=== PATIENT | female | born 1995 | race Caucasian/White ===

== ENCOUNTER → 2021-08-16 00:01 | Outpatient (BNVA) | payer SELFPAY | PROVIDERS: Visit Provider Dermatology | DX: Z01.89 Encounter for other specified special examinations (principal) ==

== ENCOUNTER → 2021-11-07 12:11 | Outpatient (BNVA) | payer OTHER, SELFPAY | PROVIDERS: Visit Provider Family Medicine | DX: Z20.822 Contact with and (suspected) exposure to COVID-19 (principal) | CPT/HCPCS: 87635 ==

== ENCOUNTER → 2023-04-13 08:40 | Outpatient (BNVA) | payer OTHER, SELFPAY | PROVIDERS: PCP Family Medicine; Visit Provider Family Medicine | DX: N91.2 Amenorrhea, unspecified (principal) | CPT/HCPCS: 84702 ==

== ENCOUNTER → 2023-04-17 15:19 | Outpatient (BNVA) | payer OTHER, SELFPAY | PROVIDERS: PCP Family Medicine; Visit Provider Family Medicine | DX: M25.551 Pain in right hip (principal) | CPT/HCPCS: 73502 ==

== ENCOUNTER → 2023-05-15 11:53 | Outpatient (BNVA) | payer OTHER, SELFPAY | PROVIDERS: PCP Family Medicine; Visit Provider Family Medicine | DX: Z13.29 Encounter for screening for other suspected endocrine disorder (principal); Z01.89 Encounter for other specified special examinations | CPT/HCPCS: 84439; 84481 ==

== ENCOUNTER → 2023-07-19 08:08 | Outpatient (BNVA) | payer OTHER, SELFPAY | PROVIDERS: PCP Family Medicine; Visit Provider Nurse Practitioner Women's Health | DX: Z34.90 Encounter for supervision of normal pregnancy, unspecified, unspecified trimester (principal); N92.6 Irregular menstruation, unspecified | CPT/HCPCS: 81025 ==

== ENCOUNTER → 2023-08-01 13:19 | Outpatient (BNVA) | payer OTHER, SELFPAY | PROVIDERS: PCP Family Medicine; Visit Provider Nurse Practitioner Women's Health | DX: Z34.90 Encounter for supervision of normal pregnancy, unspecified, unspecified trimester (principal) | CPT/HCPCS: 76817; 81000; 84702; 85025; 86850; 86900 ==

== ENCOUNTER 2023-08-08 13:15 | Outpatient (CLI) | payer OTHER, SELFPAY | END 2023-08-08 13:16 | disposition home or self-care (01) | LOC: LAB 13:17 | PROVIDERS: PCP Family Medicine; Visit Provider Nurse Practitioner Women's Health | DX: O20.0 Threatened abortion (principal); Z3A.00 Weeks of gestation of pregnancy not specified | CPT/HCPCS: 36415; 76817; 84702 ==

== ENCOUNTER → 2023-08-13 12:10 | Outpatient (BNVA) | payer OTHER, SELFPAY | PROVIDERS: PCP Family Medicine; Visit Provider Nurse Practitioner Women's Health | DX: Z34.90 Encounter for supervision of normal pregnancy, unspecified, unspecified trimester (principal) | CPT/HCPCS: 76817 ==

== ENCOUNTER 2023-08-13 12:44 | Outpatient (CLI) | payer OTHER, SELFPAY | END 2023-08-13 12:45 | disposition home or self-care (01) | LOC: LAB 12:47 | PROVIDERS: PCP Family Medicine; Visit Provider Obstetrics & Gynecology | DX: O20.0 Threatened abortion (principal); Z3A.00 Weeks of gestation of pregnancy not specified | CPT/HCPCS: 36415; 84702 ==

== ENCOUNTER → 2023-11-01 07:42 | Outpatient (BNVA) | payer OTHER, SELFPAY | PROVIDERS: PCP Family Medicine; Visit Provider Nurse Practitioner Women's Health | DX: N92.6 Irregular menstruation, unspecified (principal); E03.9 Hypothyroidism, unspecified | CPT/HCPCS: 81025; 84439; 84443; 84481; 84702 ==

== ENCOUNTER → 2023-11-06 09:17 | Outpatient (BNVA) | payer OTHER, SELFPAY | PROVIDERS: PCP Family Medicine; Visit Provider Nurse Practitioner Women's Health | DX: Z36.87 Encounter for antenatal screening for uncertain dates (principal) | CPT/HCPCS: 76801 ==

== ENCOUNTER → 2023-11-14 10:29 | Outpatient (BNVA) | payer OTHER, SELFPAY | PROVIDERS: PCP Family Medicine; Visit Provider Internal Medicine | DX: E03.9 Hypothyroidism, unspecified (principal) | CPT/HCPCS: 84439 ==

== ENCOUNTER → 2023-11-27 14:51 | Outpatient (BNVA) | payer OTHER, SELFPAY | PROVIDERS: PCP Family Medicine; Visit Provider Nurse Practitioner Women's Health | DX: Z34.90 Encounter for supervision of normal pregnancy, unspecified, unspecified trimester (principal) | CPT/HCPCS: 80307; 84315; 85025; 86592; 86762; 86803; 86850; 86900; 87086; 87340; 87806 ==

== ENCOUNTER → 2024-01-01 13:17 | Outpatient (BNVA) | payer OTHER, SELFPAY | PROVIDERS: PCP Family Medicine; Visit Provider Internal Medicine | DX: E03.9 Hypothyroidism, unspecified (principal) | CPT/HCPCS: 84439; 84443 ==

== ENCOUNTER → 2024-01-04 07:58 | Outpatient (BNVA) | payer OTHER, SELFPAY | PROVIDERS: PCP Family Medicine; Visit Provider Nurse Practitioner Women's Health | DX: Z34.80 Encounter for supervision of other normal pregnancy, unspecified trimester (principal) | CPT/HCPCS: 82105; 84315; 87086 ==

== ENCOUNTER → 2024-01-31 09:25 | Outpatient (BNVA) | payer OTHER, SELFPAY | PROVIDERS: PCP Family Medicine; Visit Provider Obstetrics & Gynecology | DX: Z36.2 Encounter for other antenatal screening follow-up (principal); Z3A.20 20 weeks gestation of pregnancy | CPT/HCPCS: 76805 ==

== ENCOUNTER → 2024-02-27 09:22 | Outpatient (BNVA) | payer OTHER, SELFPAY | PROVIDERS: PCP Family Medicine; Visit Provider Obstetrics & Gynecology | DX: G93.0 Cerebral cysts (principal); Z3A.24 24 weeks gestation of pregnancy | CPT/HCPCS: 76816 ==

== ENCOUNTER → 2024-03-04 08:25 | Outpatient (BNVA) | payer OTHER, SELFPAY | PROVIDERS: PCP Family Medicine; Visit Provider Nurse Practitioner Women's Health | DX: Z34.80 Encounter for supervision of other normal pregnancy, unspecified trimester (principal); Z34.90 Encounter for supervision of normal pregnancy, unspecified, unspecified trimester | CPT/HCPCS: 82950; 84315 ==

== ENCOUNTER → 2024-03-31 08:35 | Outpatient (BNVA) | payer OTHER, SELFPAY | PROVIDERS: PCP Family Medicine; Visit Provider Obstetrics & Gynecology | DX: Z34.80 Encounter for supervision of other normal pregnancy, unspecified trimester (principal); Z36.4 Encounter for antenatal screening for fetal growth retardation; Z3A.30 30 weeks gestation of pregnancy | CPT/HCPCS: 76816; 84315; 84443; 85025 ==

== ENCOUNTER → 2024-05-08 11:58 | Outpatient (BNVA) | payer OTHER, SELFPAY | PROVIDERS: PCP Family Medicine; Visit Provider Obstetrics & Gynecology | DX: O26.893 Other specified pregnancy related conditions, third trimester (principal); Z3A.34 34 weeks gestation of pregnancy | CPT/HCPCS: 76816; 84315 ==

== ENCOUNTER → 2024-05-23 08:23 | Outpatient (BNVA) | payer OTHER, SELFPAY | PROVIDERS: PCP Family Medicine; Visit Provider Obstetrics & Gynecology | DX: Z34.80 Encounter for supervision of other normal pregnancy, unspecified trimester (principal) | CPT/HCPCS: 84315; 87081 ==

== ENCOUNTER 2024-06-03 00:30 | Inpatient (IN) | payer OTHER, SELFPAY ==
[2024-06-02] VITALS (66 sets, daily range): BP systolic 104–163; BP diastolic 61–103; PULSE 67–126; TEMP 35.8–36.3; O2SAT 100; BMI 33.8
--- NOTE | 2024-06-02 09:15 | P.HP_ITS ---
Providers/Chief Complaint 2 Admitting Physician: Morgan Miller MD Primary PAD MACHINE OPERATOR: Meliton Thomas MD Primary Care Provider: Allyn Lawson MD Chief Complaint: Poss ROM HPI PAD MACHINE OPERATOR History of Present Illness Wilma Gamble is a 28 year old female A1 EDC June 18, 2024 At 37 w 5 d No complications Presented to L&D c/o fluid leakage No bleeding + active movements PMHx: hypothyroidism Anxiety ? depression PSHx: ACL repair Meds: levothyroxine Sertraline NKDA Present Details : 1 Para: 0 Labs RPR: Negative GBS: Negative Medications/Allergies Home Medications Medication Instructions Recorded Confirmed Last Taken Type docosahexaenoic acid 200 mg 200 mg PO DAILY 08/01/23 05/29/24 Unknown History capsule ( DHA) sertraline 100 mg tablet 100 mg PO DAILY #90 tabs 10/09/23 05/29/24 Unknown Rx levothyroxine 88 mcg tablet See Rx Instructions .Route 12/11/23 05/29/24 Unknown Rx .COMPLEX #30 tabs Allergies Allergy/AdvReac Type Severity Reaction Status Date / Time No Known Allergies Allergy Verified 05/29/24 08:30 PFSH PAD MACHINE OPERATOR 2 PFSH: Medical History Blighted ovum (~07/2023) Anxiety and depression No pertinent past medical history neghx: htn,dm,dvt/pe PCP: Dr. Lawson Hypothyroidism Sleep apnea Surgical History S/P ACL repair x9 bilateral Family History Grandmother Breast cancer MGM-- first dx at 40; remission then reoccurrence at 45 Diabetes Grandfather Diabetes Prostate cancer Mother Diabetes Father Hyperlipidemia Hypertension Thyroid disease Denies family history of Colon cancer Ovarian cancer Heart disease Uterine cancer Stroke Social History Smoking and tobacco/nicotine status: never used tobacco/nicotine History History History 2 2 Term 0 0 Miscarriages/Ectopic 1 Living Children 0 Care VIOLET Calculator 2 Estimated Delivery Date Method Current WG Current Estimate 06/18/24 LMP (Certain) 37w 5d Other Estimates 06/21/24 Ultrasound #1 37w 2d Specific Issues/Plans * ANXIETY/DEPRESSION * HYPOTHYROIDISM Vitals/I&O/Wt Last Vital Signs Temp 96.4 F L 06/02/24 16:00 Pulse 86 06/02/24 22:06 BP 153/83 06/02/24 22:06 Pulse Ox 100 06/02/24 21:49 O2 Del Method Room Air 06/02/24 17:54 06/02/24 06/02/24 06/02/24 06:59 14:59 22:59 Intake Total 917.367 / 917.367 Balance 917.367 / 917.367 Weight last 48 hrs Weight 179 lb Physical Exam 2 Narrative: Weight 179 lbs; 5?1? VS normal General comfortable, awake, alert Lungs: clear Cor: RRR Abd: soft Cervix: 2 cm / 75% / -3 / + gross clear fluid at perineum Ext: normal External monitor: heart tracing good variability, + accelerations Data 06/02/24 09:45 Results Labs OB ([facility]): 2 Obstetrics US 05/08/24 Blood Type A Positive 06/02/24 Antibody Screen Negative 06/02/24 Hct 37.5 % (36-47) 06/02/24 Hgb 13.00 g/dL (11.27-16.99) 06/02/24 Rho(D) Type Rh positive 06/02/24 Plt Count 208 10^3/cmm (157-399) 06/02/24 Hep Bs Antigen Non-reactive (Nonreactive) 11/27/23 Hepatitis C Antibody Non-reactive (Nonreactive) 11/27/23 Rubella IgG Antibody 1.6 IU/mL (0.0-10.0) 11/27/23 RPR Nonreactive (Nonreactive) 11/27/23 HIV 1&2 Ab & HIV 1 Ag Non-reactive (Non-Reactiv) 11/27/23 TSH 1.31 uIU/mL (0.27-4.20) 03/31/24 Free T4 1.34 ng/dL (0.82-1.77) 01/01/24 C.trachomatis RNA (TMA) Not detected (NOT DETECTED) N.gonorrhoeae RNA (TMA) Not detected (NOT DETECTED) T. vaginalis Amp RNA Not detected (NOT DETECTED) 12/13/23 Chlamydia/GC Comment See note 12/13/23 Cystic Fibrosis Screen Negative 11/27/23 Glucose 1 Hr 50 gm 98 mg/dL (85-140) 03/04/24 Hemoglobin A1c 5.1 % (4.0-6.0) 04/17/23 Ser , Semi-Qnt 28002.00 mIU/mL 11/01/23 HCG, Qual Positive (Negative) H 11/01/23 Urine Opiates Screen Negative ng/mL (Negative) 11/27/23 Ur Barbiturates Screen Negative ng/mL (Negative) 11/27/23 Ur Phencyclidine Scrn Negative ng/mL (Negative) 11/27/23 Ur Amphetamines Screen Negative ng/mL (Negative) 11/27/23 U Benzodiazepines Scrn Negative ng/mL (Negative) 11/27/23 Urine Cocaine Screen Negative ng/mL (Negative) 11/27/23 U Marijuana (THC) Screen Negative ng/mL (Negative) 11/27/23 Micro Urine Specimen 01/04/24 Pap Smear Interpret See note 12/13/23 A&P Assessment and plan (1) Supervision of other normal : 37 w 5 d Spontaneous rupture of membranes Fetus reassuring GBS negative Admit Plan expectant management Plan labor induction if cervix does not progress Attestations 2 Medical Necessity Statement*: patient at 37 w 5 d, with spontaneous rupture of membranes Coding Level of Care Code Acute Code for Chg Fwd Diagnoses Supervision of other normal Z34.80 Time Spent (min) 30
[2024-06-02 10:06] LABS: Basophils % 0.3 %; Eosinophils # 0.1 10^3/uL (0.0-0.8); Hematocrit 37.5 % (36-47); Lymphocytes # 1.7 10^3/uL (0.8-4.8); Lymphocytes % 21.4 %; Mean Corpuscular HGB Conc 34.7 g/dL (30-55); Mean Corpuscular Hemoglobin 30.4 pg (27-33); Mean Corpuscular Volume 87.8 fl (85-98); Mean Platelet Volume 10.3 fL (7.4-10.4); Monocytes # 0.5 10^3/uL (0.2-0.9); Monocytes % 6.7 %; Neutrophils # 5.45 10^3/uL (1.8-7.7); Neutrophils % 70.1 %; Nucleated Red Blood Cells % 0 %; Platelet Count 208 10^3/cmm (157-399); Red Blood Count 4.27 10^6/uL (3.85-5.65); Red Cell Distribution Width 12.5 % (12.1-15.1); White Blood Count 7.77 10^3/uL (3.29-11.43)
--- NOTE | 2024-06-02 11:46 | ANES.PREANE2 ---
Pre-Anesthetic Assessment Height/Weight: Height 1.55 m Weight 81.193 kg Temp Pulse BP O2 Del Method 97.3 F L 85 159/89 Room Air 06/02/24 09:43 06/02/24 11:39 06/02/24 11:39 06/02/24 09:11 Epidural Familial anesthetic complications: None Was Beta Cortes taken within 24 hours: N/A Was Clonidine taken within 24 hours: N/A Last intake: 1130 solids and liquid Social No alcohol and No tobacco Exam alert, oriented x 3, clear to auscultation bilaterally and regular rate & rhythm Airway Submandibular: Other (TMJ) Cervical ROM: within normal limits Mallampati: Class II Dentition: full History/ROS No significant history except as noted and No significant complaints Pulmonary None reported Childhoos asthma, no problems in years CV/HEM None reported None reported Hepatic None reported GI Gastroesophageal Reflux Disease (Well controlled with meds) Metabolic Thyroid Disease Musc/skel Lower Back Pain Neuropsych Anxiety and Depression Anesthetic Plan ASA status: 2 Anesthesia: Anesthesia Evaluation, General and Regional (specify below) (Epidural) Medications/Allergies Home Medications Medication Instructions Recorded Confirmed Last Taken Type docosahexaenoic acid 200 mg 200 mg PO DAILY 08/01/23 05/29/24 Unknown History capsule ( DHA) sertraline 100 mg tablet 100 mg PO DAILY #90 tabs 10/09/23 05/29/24 Unknown Rx levothyroxine 88 mcg tablet See Rx Instructions .Route 12/11/23 05/29/24 Unknown Rx .COMPLEX #30 tabs Allergies Allergy/AdvReac Type Severity Reaction Status Date / Time No Known Allergies Allergy Verified 05/29/24 08:30 [facility] Anesthesia Medical History Blighted ovum (~07/2023) Anxiety and depression No pertinent past medical history neghx: htn,dm,dvt/pe PCP: Dr. Lawson Hypothyroidism Sleep apnea Surgical History S/P ACL repair x9 bilateral Family History Grandmother Breast cancer MGM-- first dx at 40; remission then reoccurrence at 45 Diabetes Grandfather Diabetes Prostate cancer Mother Diabetes Father Hyperlipidemia Hypertension Thyroid disease Denies family history of Colon cancer Ovarian cancer Heart disease Uterine cancer Stroke Social History Smoking and tobacco/nicotine status: never used tobacco/nicotine Female Reproductive History : 1 Data Anesthesia 06/02/24 09:45 Short CBC 06/02/24 Range/Units 09:45 WBC 7.77 (3.29-11.43) 10^3/uL Hgb 13.00 (11.27-16.99) g/dL Hct 37.5 (36-47) % MCV 87.8 (85-98) fl Plt Count 208 (157-399) 10^3/cmm Neut % (Auto) 70.1 % Neut # (Auto) 5.45 (1.8-7.7) 10^3/uL Blood Bank 06/02/24 09:45 Blood Type A Positive Rho(D) Type Rh positive Antibody Screen Negative Cardiac Studies: No Data to Display
[2024-06-02] MEDS: dextrose 5%-sod chloride 0.45% 1,000 ML 125 ML IV ×2 (14:27→19:49)
[2024-06-02] MEDS: oxytocin 30 UNIT/500 ML BAG IV (14:27)
[2024-06-02] MEDS: acetaminophen 325 mg Tablet 650 MG PO (19:46)
[2024-06-02] MEDS: lactated ringers 1,000 ML 999 ML IV (20:30)
[2024-06-02] MEDS: ROPivacaine syringe 100 MG/50 ML SYRINGE 12 MG EPIDURAL (21:55)
--- NOTE | 2024-06-02 22:02 | ANES.PROC ---
Anesthesia Procedures Procedure/Date: 06/02/24 Epidural: Time Out Performed: Yes Consents Signed: Procedure Consent and NPO Consent Consent: requested by attending/covering physician, from patient, risks and benefits reviewed and patient agrees to proceed Lumbar Level: L3-L4 Epidural position: sitting Epidural procedure: sterile prep of area (betadine), 1% lidocaine to numb the area (3 mLs), neg for paresthesia, test dose given, 1.5% xylocaine 1:200k epi (3 mLs/ 2 mLs), placed PCEA, no systemic response, sterile dressing applied, L.U.D. no apparent complications and 0.2% Ropiavacaine @ mls/hr (12) Additional Comments: SALLIE 6cm, threaded catheter to 11cm. No heme or CSF aspirated. Patient tolerated well.
[2024-06-03] VITALS (63 sets, daily range): BP systolic 90–152; BP diastolic 50–100; PULSE 60–111; RESP 14–18; TEMP 36.3–36.8; O2SAT 96–100
[2024-06-03] MEDS: ROPivacaine syringe 100 MG/50 ML SYRINGE 12 MG EPIDURAL ×3 (00:41→07:22)
[2024-06-03] MEDS: dextrose 5%-sod chloride 0.45% 1,000 ML 125 ML IV (00:44)
--- NOTE | 2024-06-03 01:05 | P.PN_ITS ---
YARDMASTER Subjective 2 Subjective: Interval history: this note was written on June 02, 2024, 1530 Fetus reassuring Mild UCs Cervix: 2 cm / 90 / -3 Plan start Pitocin Labor: Station: +1 Amniotic Membrane Status: Ruptured Monitor Mode: Palpation Contraction Pattern: Regular Uterine Tone Measurement: 15 Vitals/I&O/Wt Last Vital Signs Temp 98.0 F 06/04/24 18:03 Pulse 74 06/04/24 18:03 Resp 16 06/04/24 18:03 BP 119/71 06/04/24 18:03 Pulse Ox 99 06/04/24 18:03 O2 Del Method Room Air 06/04/24 11:09 Physical Exam 2 Urinary Catheter Management: Olvera: Cath Placed During This Visit: yes, but has since been removed by the nurse Reason for Continuing Indwelling Catheter: Decision to DC Catheter Urinary Catheter Date of Insertion: 06/02/24 Urinary Catheter Time of Insertion: 22:45 Date Urinary Catheter Removed: 06/03/24 Time Urinary Catheter Discontinued: 10:01 Data 06/03/24 22:05 A&P Assessment and plan (1) Supervision of other normal : Attestations 2 Medical Necessity Statement*: patient at 37 w 5 d, with spontaneous rupture of membranes Coding Level of Care Code Acute Code for Chg Fwd Diagnoses Supervision of other normal Z34.80 Time Spent (min) 30
--- NOTE | 2024-06-03 01:10 | P.PN_ITS ---
POLITICAL SCIENCE INSTRUCTOR Subjective 2 Subjective: Interval history: this note was written on June 02, 2024, 2044 Fetus reassuring Cervix: 3-4 cm / 90 / -1 Continue Pitocin Labor: Station: +1 Amniotic Membrane Status: Ruptured Monitor Mode: Palpation Contraction Pattern: Regular Uterine Tone Measurement: 15 Vitals/I&O/Wt Last Vital Signs Temp 98.0 F 06/04/24 18:03 Pulse 74 06/04/24 18:03 Resp 16 06/04/24 18:03 BP 119/71 06/04/24 18:03 Pulse Ox 99 06/04/24 18:03 O2 Del Method Room Air 06/04/24 11:09 Physical Exam 2 Urinary Catheter Management: Olvera: Cath Placed During This Visit: yes, but has since been removed by the nurse Reason for Continuing Indwelling Catheter: Decision to DC Catheter Urinary Catheter Date of Insertion: 06/02/24 Urinary Catheter Time of Insertion: 22:45 Date Urinary Catheter Removed: 06/03/24 Time Urinary Catheter Discontinued: 10:01 Data 06/03/24 22:05 A&P Assessment and plan (1) Supervision of other normal : Attestations 2 Medical Necessity Statement*: patient at 37 w 5 d, with spontaneous rupture of membranes Coding Level of Care Code Acute Code for Chg Fwd Diagnoses Supervision of other normal Z34.80 Time Spent (min) 30
--- NOTE | 2024-06-03 01:15 | P.PN_ITS ---
SILICA MIXER OPERATOR Subjective 2 Subjective: Interval history: Fetus reassuring Comfortable with epidural Cervix: 5 cm / -1 Continue Pitocin Labor: Station: +1 Amniotic Membrane Status: Ruptured Monitor Mode: Palpation Contraction Pattern: Regular Uterine Tone Measurement: 15 Vitals/I&O/Wt Last Vital Signs Temp 98.0 F 06/04/24 18:03 Pulse 74 06/04/24 18:03 Resp 16 06/04/24 18:03 BP 119/71 06/04/24 18:03 Pulse Ox 99 06/04/24 18:03 O2 Del Method Room Air 06/04/24 11:09 Physical Exam 2 Urinary Catheter Management: Olvera: Cath Placed During This Visit: yes, but has since been removed by the nurse Reason for Continuing Indwelling Catheter: Decision to DC Catheter Urinary Catheter Date of Insertion: 06/02/24 Urinary Catheter Time of Insertion: 22:45 Date Urinary Catheter Removed: 06/03/24 Time Urinary Catheter Discontinued: 10:01 Data 06/03/24 22:05 A&P Assessment and plan (1) Supervision of other normal : Attestations 2 Medical Necessity Statement*: patient at 37 w 6 d, with spontaneous rupture of membranes Coding Level of Care Code Acute Code for Chg Fwd Diagnoses Supervision of other normal Z34.80 Time Spent (min) 30
[2024-06-03] MEDS: ondansetron 2 mg/ML SDV 2 mL 4 MG IVP ×2 (02:23→09:09)
--- NOTE | 2024-06-03 07:30 | P.PN_ITS ---
INCINERATOR PLANT GENERAL SUPERVISOR Subjective 2 Subjective: Interval history: Fetus reassuring Cervix: reducible anterior lip Labor: Station: +1 Amniotic Membrane Status: Ruptured Monitor Mode: Palpation Contraction Pattern: Regular Uterine Tone Measurement: 15 Vitals/I&O/Wt Last Vital Signs Temp 98.0 F 06/04/24 18:03 Pulse 74 06/04/24 18:03 Resp 16 06/04/24 18:03 BP 119/71 06/04/24 18:03 Pulse Ox 99 06/04/24 18:03 O2 Del Method Room Air 06/04/24 11:09 Physical Exam 2 Urinary Catheter Management: Olvera: Cath Placed During This Visit: yes, but has since been removed by the nurse Reason for Continuing Indwelling Catheter: Decision to DC Catheter Urinary Catheter Date of Insertion: 06/02/24 Urinary Catheter Time of Insertion: 22:45 Date Urinary Catheter Removed: 06/03/24 Time Urinary Catheter Discontinued: 10:01 Data 06/03/24 22:05 A&P Assessment and plan (1) Supervision of other normal : Attestations 2 Medical Necessity Statement*: patient at 37 w 6 d, with spontaneous rupture of membranes Coding Level of Care Code Acute Code for Chg Fwd Diagnoses Supervision of other normal Z34.80 Time Spent (min) 30
[2024-06-03] MEDS: oxytocin 30 UNIT/500 ML BAG 600 UNIT IV (10:23)
--- NOTE | 2024-06-03 10:40 | P.PN_ITS ---
SEARCH DIRECTOR Subjective 2 Subjective: Interval history: DELIVERY NOTE Cervix: complete / +2 head JASWANT, + asynclitic Patient has been pushing x two hours + maternal exhaustion Now with moderate variable decelerations with uterine contractions Vacuum extractor applied Mild traction used through two uterine contractions Brought head to perineum Shoulders delivered easily Vigorous Cord gases and blood obtained Normal placenta and cord Midline episiotomy with third degree extension repaired in layers EBL: 400 cc No complications Labor: Station: +1 Amniotic Membrane Status: Ruptured Monitor Mode: Palpation Contraction Pattern: Regular Uterine Tone Measurement: 15 Vitals/I&O/Wt Last Vital Signs Temp 98.0 F 06/04/24 18:03 Pulse 74 06/04/24 18:03 Resp 16 06/04/24 18:03 BP 119/71 06/04/24 18:03 Pulse Ox 99 06/04/24 18:03 O2 Del Method Room Air 06/04/24 11:09 Physical Exam 2 Urinary Catheter Management: Olvera: Cath Placed During This Visit: yes, but has since been removed by the nurse Reason for Continuing Indwelling Catheter: Decision to DC Catheter Urinary Catheter Date of Insertion: 06/02/24 Urinary Catheter Time of Insertion: 22:45 Date Urinary Catheter Removed: 06/03/24 Time Urinary Catheter Discontinued: 10:01 Data 06/03/24 22:05 A&P Assessment and plan (1) Vaginal delivery: Attestations 2 Medical Necessity Statement*: patient s/p vaginal delivery Coding Level of Care Code Acute Code for Chg Fwd Diagnoses Vaginal delivery O80 Time Spent (min) 60
--- NOTE | 2024-06-03 10:45 | PM.DELIVERY ---
Delivery Note: Date of delivery: June 03, 2024 Pre-delivery diagnoses: 28 y.o. A1 at 37 w 5 d presented to L&D with spontaneous rupture of membranes Post-delivery diagnoses: 28 y.o. A1 at 37 w 5 d presented to L&D with spontaneous rupture of membranes pitocin induction of labor vacuum-assisted vaginal delivery midline episiotomy and third-degree perineal laceration repaired Procedure: induction of labor vacuum-assisted vaginal delivery midline episiotomy and third-degree perineal laceration repaired Op report anesthesia: Epidural Delivering Physician: Morgan Miller MD Estimated blood loss (mL): 400 Findings: Cervix: complete / +2 head JASWANT, + asynclitic Patient has been pushing x two hours + maternal exhaustion Now with moderate variable decelerations with uterine contractions Vacuum extractor applied Mild traction used through two uterine contractions Brought head to perineum Shoulders delivered easily Vigorous infant Cord gases and blood obtained Normal placenta and cord Midline episiotomy with third degree extension repaired in layers EBL: 400 cc No complications Pre-Delivery Course: normal labor course Delivery: vaginal Post-Delivery Status: good History History History 2 Term 0 0 Miscarriages/Ectopic 1 Living Children 0 A&P Assessment and plan (1) Vaginal delivery: Coding Level of Care Code Acute Code for Chg Fwd Diagnoses Vaginal delivery O80 Time Spent (min) 90
[2024-06-03] MEDS: acetaminophen 325 mg Tablet 650 MG PO (12:10)
[2024-06-03] MEDS: HYDROcodone-acetaminophen 5-325 mg Tablet PO ×2 (12:49→23:57)
[2024-06-03] MEDS: benzocaine-menthol 78 gm Canister 1 SPRAY TOPICAL (13:22)
[2024-06-03] MEDS: ibuprofen 800 mg tablet PO ×2 (15:50→20:14)
[2024-06-03] MEDS: lanolin oint 7 gm 1 APPLIC TOPICAL (20:14)
[2024-06-03] MEDS: docusate sodium 100 mg Capsule PO (20:14)
[2024-06-03 22:17] LABS: Hematocrit 31.4 % (36-47); Mean Corpuscular HGB Conc 34.4 g/dL (30-55); Mean Corpuscular Hemoglobin 30.7 pg (27-33); Mean Corpuscular Volume 89.2 fl (85-98); Platelet Count 205 10^3/cmm (157-399); Red Blood Count 3.52 10^6/uL (3.85-5.65); Red Cell Distribution Width 12.6 % (12.1-15.1)
[2024-06-04] VITALS: BP 107/61; PULSE 80; RESP 18; TEMP 36.3; O2SAT 97
[2024-06-04 04:00] VITALS: BP 124/69; PULSE 85; RESP 18; TEMP 36.6; TEMP 36.7; O2SAT 96
[2024-06-04] MEDS: HYDROcodone-acetaminophen 5-325 mg Tablet PO (04:08)
--- NOTE | 2024-06-04 08:00 | ANE.PACU2 ---
Inpatient post-anesthesia follow up: Airway intact: Yes Vital signs: Temperature 98.0 F Pulse Rate 74 Respiratory Rate 16 Blood Pressure 119/71 Pulse Oximetry 99 Oxygen Delivery Me thod Room Air Oxygen Flow Rate Fraction of Inspir ed Oxygen Hydration adequate: Yes Nausea and vomiting: No Pain level: 1 Mental status: Baseline Epidural Start/End: Epidural Start Date: 06/02/24 Epidural Start Time: 21:30 Epidural End Date: 06/03/24 Epidural End Time: 11:00
[2024-06-04] MEDS: ibuprofen 800 mg tablet PO ×2 (08:05→14:11)
[2024-06-04] MEDS: PRENATAL VIT NO.130/IRON/FOLIC 1 EACH TABLET PO (08:06)
[2024-06-04] MEDS: docusate sodium 100 mg Capsule PO (08:06)
[2024-06-04 11:09] VITALS: BP 128/70; PULSE 74; RESP 16; TEMP 36.7
--- NOTE | 2024-06-04 14:05 | P.PN_ITS ---
CLOTH EXAMINER MACHINE Subjective 2 Subjective: Interval history: no c/o no bleeding mild perineal pain relieved with pain medications eating, voiding, ambulating well caring for without any problems Labor: Station: +1 Amniotic Membrane Status: Ruptured Monitor Mode: Palpation Contraction Pattern: Regular Uterine Tone Measurement: 15 Vitals/I&O/Wt Last Vital Signs Temp 98.0 F 06/04/24 18:03 Pulse 74 06/04/24 18:03 Resp 16 06/04/24 18:03 BP 119/71 06/04/24 18:03 Pulse Ox 99 06/04/24 18:03 O2 Del Method Room Air 06/04/24 11:09 Physical Exam 2 Narrative: afebrile, VS normal comfortable, awake, alert Abd: soft, nontender. fundus firm Ext: no edema; nontender Urinary Catheter Management: Olvera: Cath Placed During This Visit: yes, but has since been removed by the nurse Reason for Continuing Indwelling Catheter: Decision to DC Catheter Urinary Catheter Date of Insertion: 06/02/24 Urinary Catheter Time of Insertion: 22:45 Date Urinary Catheter Removed: 06/03/24 Time Urinary Catheter Discontinued: 10:01 Data 06/03/24 22:05 A&P Assessment and plan (1) Vaginal delivery: PPD #1 vacuum-assisted vaginal delivery, repair of third-degree perineal laceration doing well patient wants to go home discharge to home today instructions and precautions given call/return if fever, chills, headache, blurry vision, nausea, vomiting, abdominal pain; vaginal bleeding or discharge; shortness of breath, chest pain, leg pains or swelling; inability to void, perineal pain or swelling; feelings of depression or mood changes; thoughts of suicide or harming others; inability to care for baby. f/u in 1-2 weeks or PRN Attestations 2 Medical Necessity Statement*: patient s/p vaginal delivery, plan to discharge to home today Coding Level of Care Code Acute Code for Chg Fwd Diagnoses Vaginal delivery O80 Time Spent (min) 20
--- NOTE | 2024-06-04 14:15 | P.DS_ITS ---
Discharge Providers [employer] Date of Admission: 06/02/24 0915 Date of Discharge: 06/04/24 Attending Provider at Admission: Morgan Miller MD Attending Provider at Discharge: Morgan Miller MD Consults: none Primary [employer]YCH[employer]IST: Meliton Thomas MD Primary Care Provider: Allyn Lawson MD Diagnoses at Discharge Discharge Diagnosis (1) Vaginal delivery: Details from hospital stay: 28 y.o. A1 at 37 w 5 d no complications presented to L&D with spontaneous rupture of membranes patient was started on pitocin induction of labor patient progressed to complete / + 2 station fetus was reassuring throughout patient required vacuum-assisted vaginal delivery with repair of midline episiotomy and third-degree perineal extension patient did well was discharged to home on the first day Status: Acute Reason for Visit Reason for Visit: Poss ROM Brief History: 28 y.o. A1 at 37 w 5 d no complications presented to L&D with spontaneous rupture of membranes Hospital Course Hospital Course 28 y.o. A1 at 37 w 5 d no complications presented to L&D with spontaneous rupture of membranes patient was started on pitocin induction of labor patient progressed to complete / + 2 station fetus was reassuring throughout patient required vacuum-assisted vaginal delivery with repair of midline episiotomy and third-degree perineal extension patient did well was discharged to home on the first day Information Peripartum Data: Delivery Method: Vaginal Laceration description: Perineal - 3rd Degree Episiotomy description: Midline complications: none Physical Exam Narrative: afebrile, VS normal comfortable, awake, alert Abd: soft, nontender. fundus firm Ext: no edema; nontender Urinary Catheter Management: Olvera: Cath Placed During This Visit: yes, but has since been removed by the nurse Reason for Continuing Indwelling Catheter: Decision to DC Catheter Urinary Catheter Date of Insertion: 06/02/24 Urinary Catheter Time of Insertion: 22:45 Date Urinary Catheter Removed: 06/03/24 Time Urinary Catheter Discontinued: 10:01 History History History 2 Term 0 0 Miscarriages/Ectopic 1 Living Children 0 Discharge Data Studies Completed and Pending Laboratory Results WBC 15.00 10^3/uL (3.29-11.43) H 06/03/24 22:05 RBC 3.52 10^6/uL (3.85-5.65) L 06/03/24 22:05 Hgb 10.80 g/dL (11.27-16.99) L 06/03/24 22:05 Hct 31.4 % (36-47) L 06/03/24 22:05 MCV 89.2 fl (85-98) 06/03/24 22:05 MCH 30.7 pg (27-33) 06/03/24 22:05 MCHC 34.4 g/dL (30-55) 06/03/24 22:05 RDW 12.6 % (12.1-15.1) 06/03/24 22:05 Plt Count 205 10^3/cmm (157-399) 06/03/24 22:05 MPV 10.0 fL (7.4-10.4) 06/03/24 22:05 Neut % (Auto) 70.1 % 06/02/24 09:45 Lymph % (Auto) 21.4 % 06/02/24 09:45 [place] % (Auto) 6.7 % 06/02/24 09:45 Eos % (Auto) 1.0 % 06/02/24 09:45 Baso % (Auto) 0.3 % 06/02/24 09:45 Neut # (Auto) 5.45 10^3/uL (1.8-7.7) 06/02/24 09:45 Lymph # (Auto) 1.7 10^3/uL (0.8-4.8) 06/02/24 09:45 [place] # (Auto) 0.5 10^3/uL (0.2-0.9) 06/02/24 09:45 Eos # (Auto) 0.1 10^3/uL (0.0-0.8) 06/02/24 09:45 Baso # (Auto) 0.0 10^3/uL (0.0-0.1) 06/02/24 09:45 Nucleated RBC % (auto) 0 % 06/02/24 09:45 Nucleated RBCs # 0.0 /100WBC 06/02/24 09:45 Blood Type A Positive 06/02/24 09:45 Rho(D) Type Rh positive 06/02/24 09:45 Antibody Screen Negative 06/02/24 09:45 Procedures Performed induction of labor vacuum-assisted vaginal delivery repair of midline episiotomy with third-degree perineal extension Vitals Last Vital Signs Temp 98.0 F 06/04/24 18:03 Pulse 74 06/04/24 18:03 Resp 16 06/04/24 18:03 BP 119/71 06/04/24 18:03 Pulse Ox 99 06/04/24 18:03 O2 Del Method Room Air 06/04/24 11:09 Results Labs OB ([facility]): Obstetrics US 05/08/24 Blood Type A Positive 06/02/24 Antibody Screen Negative 06/02/24 Hct 31.4 % (36-47) L 06/03/24 Hgb 10.80 g/dL (11.27-16.99) L 06/03/24 Rho(D) Type Rh positive 06/02/24 Plt Count 205 10^3/cmm (157-399) 06/03/24 Hep Bs Antigen Non-reactive (Nonreactive) 11/27/23 Hepatitis C Antibody Non-reactive (Nonreactive) 11/27/23 Rubella IgG Antibody 1.6 IU/mL (0.0-10.0) 11/27/23 RPR Nonreactive (Nonreactive) 11/27/23 HIV 1&2 Ab & HIV 1 Ag Non-reactive (Non-Reactiv) 11/27/23 TSH 1.31 uIU/mL (0.27-4.20) 03/31/24 Free T4 1.34 ng/dL (0.82-1.77) 01/01/24 C.trachomatis RNA (TMA) Not detected (NOT DETECTED) N.gonorrhoeae RNA (TMA) Not detected (NOT DETECTED) T. vaginalis Amp RNA Not detected (NOT DETECTED) 12/13/23 Chlamydia/GC Comment See note 12/13/23 Cystic Fibrosis Screen Negative 11/27/23 Glucose 1 Hr 50 gm 98 mg/dL (85-140) 03/04/24 Hemoglobin A1c 5.1 % (4.0-6.0) 04/17/23 Ser , Semi-Qnt 98679.00 mIU/mL 11/01/23 HCG, Qual Positive (Negative) H 11/01/23 Urine Opiates Screen Negative ng/mL (Negative) 11/27/23 Ur Barbiturates Screen Negative ng/mL (Negative) 11/27/23 Ur Phencyclidine Scrn Negative ng/mL (Negative) 11/27/23 Ur Amphetamines Screen Negative ng/mL (Negative) 11/27/23 U Benzodiazepines Scrn Negative ng/mL (Negative) 11/27/23 Urine Cocaine Screen Negative ng/mL (Negative) 11/27/23 U Marijuana (THC) Screen Negative ng/mL (Negative) 11/27/23 Micro Urine Specimen 01/04/24 Pap Smear Interpret See note 12/13/23 Discharge Plan Discharge Patient Disposition: Home Condition: Stable Prescriptions: Continued DHA 200 mg capsule 200 mg PO DAILY sertraline 100 mg tablet 100 mg PO DAILY Qty: 90 3RF levothyroxine 88 mcg tablet See Rx Instructions .ROUTE .COMPLEX Qty: 30 5RF Dose Instruction: TAKE ONE TABLET BY MOUTH DAILY Rx Instructions: TAKE ONE TABLET BY MOUTH DAILY Discharge Orders: Discharge Order (Routine); Ordered 06/04/24 Ordered By: Morgan Miller Discharge Diet: Usual diet Discharge Activity: Increase activity as tolerated Patient Instructions: Depression (DC), Bleeding (DC), Preeclampsia and Eclampsia After Delivery (GEN), OB Care at Home, Opioid Safety, Abnormal Bleeding Activity Restrictions/Additional Instructions: Call on Sunday to make a 2 week and a 6 week follow up appointment. Plan of Treatment: f/u with clinic 1-2 weeks Discharge Attestations [employer] Time Spent in Discharge Care*: less than 30 min Coding Level of Care Code Acute Code for Chg Fwd Diagnoses Vaginal delivery O80 Time Spent (min) 20
[2024-06-04 18:03] VITALS: BP 119/71; PULSE 74; RESP 16; TEMP 36.7; O2SAT 99
== END 2024-06-04 18:28 | disposition home or self-care (01) | DRG 768 ==
LOC: OPOB 00:30 → OBGYN 00:31
PROVIDERS: Admitting Provider Obstetrics & Gynecology; PCP Family Medicine; Visit Provider Obstetrics & Gynecology
DX: O99.344 Other mental disorders complicating childbirth (principal); Z37.0 Single live birth; O70.20 Third degree perineal laceration during delivery, unspecified; F41.9 Anxiety disorder, unspecified; Z3A.37 37 weeks gestation of pregnancy; F32.A Depression, unspecified; O99.284 Endocrine, nutritional and metabolic diseases complicating childbirth; E03.9 Hypothyroidism, unspecified; O76 Abnormality in fetal heart rate and rhythm complicating labor and delivery; O75.81 Maternal exhaustion complicating labor and delivery
CPT/HCPCS: 36415; 51702; 59025; 59409; 85025; 85027; 86850; 86900; 96374; 96376; 98960; 99211; J2405; J2590; J2795; J7120; J7799

== ENCOUNTER → 2024-07-25 16:20 | Outpatient (BNVA) | payer OTHER, SELFPAY | PROVIDERS: PCP Family Medicine; Visit Provider Obstetrics & Gynecology | DX: Z12.4 Encounter for screening for malignant neoplasm of cervix (principal) | CPT/HCPCS: 87624 ==